=== PATIENT | female | born 1995 | race Caucasian/White ===

== ENCOUNTER 2018-07-23 19:06 | Emergency (ER) | payer BC ==
[2018-07-23 20:10] LABS: ABS Basophils 0.1 10^3/ul (0-0.2); ABS Eosinophils 0.3 10^3/ul (0-0.6); ABS Lymphocytes 2.8 10^3/ul (1.0-4.8); ABS Monocytes 0.5 10^3/ul (0-0.8); ABS Neutrophils 4.8 10^3/ul (1.5-7.7); ABS Nucleated RBC 0 10^3/ul; Eosinophil % 3.7 % (0-6); Hematocrit 38 % (35-47); Hemoglobin 12.8 g/dl (12.0-16.0); Lymphocyte % 33.3 % (25-47); Mean Corpuscular HGB Conc 34 g/dl (31-36); Mean Corpuscular Hemoglobin 29 pg (27-31); Mean Corpuscular Volume 86 fL (80-97); Mean Platelet Volume 8.3 um3 (7.4-10.4); Nucleated Red Blood Cells % 0.1; Platelet Count 247 10^3/ul (150-450); Red Blood Count 4.43 10^6/ul (4.00-5.40); Red Cell Distribution Width 13 % (10.5-15); White Blood Count 8.6 10^3/ul (3.5-10.8)
[2018-07-23 20:30] LABS: EGFR Non-African American 90.5 (>60)
--- NOTE | 2018-07-24 00:49 | ED ---
Abdominal Pain/Female - HPI Summary HPI Summary: The pt is a 22 y/o female [facility]/o epigastric pain since 2 weeks ago worsened today. The pain rated 9/10 in intensity radiates to the lower back. The pt was seen at [facility] and informed that labs were negative. An ABd/Pel CT scan done at Urgent Care 2 days ago returned negative. She notes vomiting but denies nausea, diarrhea, fever and constipation. - History of Current Complaint Chief Complaint: EDAbdPain Stated Complaint: ABD PAIN Hx Obtained From: Patient Onset/Duration: Lasting Weeks - 2 weeks, Still Present, Worse Since - Today Timing: Constant Severity Currently: Severe Pain Intensity: 9 Pain Scale Used: 0-10 Numeric Location: Epigastric Radiates: Yes Radiates to: Back Associated Signs and Symptoms: Positive: Back Pain, Vomiting. Negative: Fever, Constipation, Nausea, Diarrhea Allergies/Adverse Reactions: Allergies Allergy/AdvReac Type Severity Reaction Status Date / Time Tree Nuts Allergy Severe Anaphylatic Verified 07/23/18 19:19 Shock metronidazole [From Flagyl] Allergy Mild Dizziness Verified 07/23/18 19:19 Penicillins Allergy Mild Hives Verified 07/23/18 19:19 fruit extracts Allergy Severe Difficulty Uncoded 07/23/18 19:19 Breathing/Wheezing dust and molds Allergy Mild Eyes Uncoded 07/23/18 19:19 Itchy/Swollen/Red/Watery PMH/Surg Hx/FS Hx/Imm Hx Previously Healthy: No Endocrine/Hematology History: Reports: Other Endocrine/Hematological Disorders - [place] Denies: Hx Diabetes Cardiovascular History: Denies: Hx Hypertension History: Denies: Hx Renal Disease Sensory History: Denies: Hx Deafness Opthamlomology History: Denies: Hx Legally Blind - Cancer History Cancer Type, Location and Year: None reported - Surgical History Surgery Procedure, Year, and Place: wisdom teeth removal - Immunization History Date of Tetanus Vaccine: UTD Date of Influenza Vaccine: none Infectious Disease History: No Infectious Disease History: Denies: Traveled Outside the [place] in Last 30 Days - Family History Known Family History: Negative: Cardiac Disease - Social History Occupation: Student Lives: Dormitory/Roommates Alcohol Use: Weekly Substance Use Type: Reports: Marijuana, Other Substance Use Comment - Amount & Last Used: codeine cough syrup over last 2 weeks Hx Tobacco Use: No Smoking Status (MU): Never Smoked Tobacco Review of Systems Negative: Fever Gastrointestinal: Negative - Constipation Positive: Abdominal Pain - Epigastric, Vomiting. Negative: Diarrhea, Nausea All Other Systems Reviewed And Are Negative: Yes Physical Exam - Summary Physical Exam Summary: VITAL SIGNS: Reviewed. GENERAL: Patient is a well-developed and nourished (MALE OR FEMALE) who is lying comfortable in the stretcher. Patient is not in any acute respiratory distress. HEAD AND FACE: No signs of trauma. No ecchymosis, hematomas or skull depressions. No sinus tenderness. EYES: PERRLA, EOMI x 2, No injected conjunctiva, no nystagmus. EARS: Hearing grossly intact. Ear canals and tympanic membranes are within normal limits. MOUTH: Oropharynx within normal limits. NECK: Supple, trachea is midline, no adenopathy, no JVD, no carotid bruit, no c- spine tenderness, neck with full ROM. CHEST: Symmetric, no tenderness at palpation LUNGS: Clear to auscultation bilaterally. No wheezing or crackles. CVS: Regular rate and rhythm, S1 and S2 present, no murmurs or gallops appreciated. ABDOMEN: Soft, diffusely tender. No signs of distention. No rebound no guarding , and no masses palpated. Bowel sounds are hyperactive. EXTREMITIES: FROM in all major joints, no edema, no cyanosis or clubbing. NEURO: Alert and oriented x 3. No acute neurological deficits. Speech is normal and follows commands. SKIN: Dry and warm Triage Information Reviewed: Yes Vital Signs On Initial Exam: Initial Vitals Temp Pulse Resp BP Pulse Ox 98.1 F 74 16 136/79 97 07/23/18 19:15 07/23/18 19:15 07/23/18 19:15 07/23/18 19:15 07/23/18 19:15 Vital Signs Reviewed: Yes Diagnostics - Vital Signs Vital Signs Temp Pulse Resp BP Pulse Ox 07/23/18 22:53 98.1 F 79 16 122/75 100 07/23/18 19:15 98.1 F 74 16 136/79 97 - Laboratory Lab Results: Lab Results 07/23/18 07/23/18 07/23/18 Range/Units 19:56 19:56 19:56 WBC 8.6 (3.5-10.8) 10^3/ul RBC 4.43 (4.00-5.40) 10^6/ul Hgb 12.8 (12.0-16.0) g/dl Hct 38 (35-47) % MCV 86 (80-97) fL MCH 29 (27-31) pg MCHC 34 (31-36) g/dl RDW 13 (10.5-15) % Plt Count 247 (150-450) 10^3/ul MPV 8.3 (7.4-10.4) um3 Neut % (Auto) 56.3 (38-83) % Lymph % (Auto) 33.3 (25-47) % [place] % (Auto) 6.1 (0-7) % Eos % (Auto) 3.7 (0-6) % Baso % (Auto) 0.6 (0-2) % Absolute Neuts (auto) 4.8 (1.5-7.7) 10^3/ul Absolute Lymphs (auto) 2.8 (1.0-4.8) 10^3/ul Absolute Monos (auto) 0.5 (0-0.8) 10^3/ul Absolute Eos (auto) 0.3 (0-0.6) 10^3/ul Absolute Basos (auto) 0.1 (0-0.2) 10^3/ul Absolute Nucleated RBC 0 10^3/ul Nucleated RBC % 0.1 Sodium 137 (135-145) mmol/L Potassium 4.1 (3.5-5.0) mmol/L Chloride 103 (101-111) mmol/L Carbon Dioxide 28 (22-32) mmol/L Anion Gap 6 (2-11) mmol/L BUN 16 (6-24) mg/dL Creatinine 0.80 (0.51-0.95) mg/dL Est GFR ( Amer) 109.6 (>60) Est GFR (Non-Af Amer) 90.5 (>60) BUN/Creatinine Ratio 20.0 (8-20) Glucose 96 (70-100) mg/dL Lactic Acid 0.7 (0.5-2.0) mmol/L Calcium 9.1 (8.6-10.3) mg/dL Total Bilirubin 0.40 (0.2-1.0) mg/dL AST 23 (13-39) U/L ALT 12 (7-52) U/L Alkaline Phosphatase 53 (34-104) U/L C-Reactive Protein 2.61 (<8.01) mg/L Total Protein 6.4 (6.4-8.9) g/dL Albumin 3.9 (3.2-5.2) g/dL Globulin 2.5 (2-4) g/dL Albumin/Globulin Ratio 1.6 (1-3) Lipase 12 (11.0-82.0) U/L Beta HCG, Quant < 0.60 mIU/mL Result Diagrams: 07/23/18 19:56 07/23/18 19:56 Lab Statement: Any lab studies that have been ordered have been reviewed, and results considered in the medical decision making process. - Ultrasound No standard instances Ultrasound Interpretation Completed By: ED Physician - Gallbladder US IMPRESSION : Normal study. The ED physician reviewed this radiology report. Abdominal Pain Fem Course/Dx - Course Course Of Treatment: A 22 year-old F presents to the ED with a CC of epigastric pain since 2 weeks ago worsened today. The pain rated 7/10 in intensity radiates to the lower back. The pt was seen at [facility] and informed that labs were negative. An Abd/Pel CT scan done at Urgent Care 2 days ago returned negative. She notes vomiting but denies nausea, diarrhea and constipation. A physical exam revealed diffuse abd tenderness and hyperactive bowel sounds. A gall bladder US, Abdominal X-ray and labs are all unremarkable. In the ED course, pt was given Alhydroxy/Mg 30 ml PO, and Lidocaine 2% 15ml PO which improved the symptoms. The pt possibly has IBS. She will be discharged with a final Dx of abdominal pain and instructions to follow up with a rental clerk. Pt is agreeable with this plan. Allergies noted. - Diagnoses Provider Diagnoses: Abdominal pain Discharge - Sign-Out/Discharge Documenting (check all that apply): Patient Departure - DC - Discharge Plan Condition: Stable Disposition: HOME Prescriptions: Dicyclomine CAP* [Bentyl CAP*] 10 mg PO TID PRN #30 cap PRN Reason: Pain Patient Education Materials: Abdominal Pain (ED) Referrals: Holden Delgadillo MD [Medical Doctor] - Saba Clayton [Primary Care Provider] - 2 Days Additional Instructions: RETURN TO THE EMERGENCY DEPARTMENT FOR CHANGING OR WORSENING SYMPTOMS. FOLLOW UP WITH PCP IN 1-2 DAYS. - Attestation Statements Document Initiated by Scribe: Yes Documenting Scribe: Sabine Azar Provider For Whom Scribe is Documenting (Include Credential): Dr. Zuleika Maharaj MD Scribe Attestation: Sabine John , scribed for Dr. Zuleika Maharaj MD on 07/24/18 at 0115.
[2018-07-24] MEDS ORDERED: Lidocaine 2% VISCOUS* 15 ML UDC PO ONE (00:50)
[2018-07-24] MEDS ORDERED: Al Hydrox/Mg Hydrox/Simet LIQ* 30 ML UDC PO ONE (00:50)
[2018-07-24 00:55] LABS: Urine Appearance Clear; Urine Blood Negative (Negative); Urine Color Straw; Urine Ketones Negative (Negative); Urine Protein Negative (Negative); Urine Specific Gravity 1.008 (1.010-1.030); Urine Urobilinogen Negative (Negative)
--- NOTE | 2018-07-24 00:59 | RAD ---
EXAM: US Abdomen Limited, Right Upper Quadrant CLINICAL HISTORY: 22 years old, female; Pain; Abdominal pain; Epigastric; Patient HX: Epigastric pain x2wks vomiting and bloating; Additional info: Ruq pain TECHNIQUE: Real-time ultrasound of the right upper quadrant with image documentation. COMPARISON: ABD W CT ABDOMEN W 07/13/2018 1:31 PM FINDINGS: Liver: The liver parenchyma shows homogeneous echogenicity. The liver measures 16.9 cm. There are no hepatic mass lesions or cysts. No intrahepatic bile duct dilation. Gallbladder: The gallbladder is normal in appearance. No gallstones.There was a negative sonographic Eli's sign, as per the mechatronics technologist. Common bile duct: The common bile duct has a diameter of approximately 2 mm. No stones. No dilation. Pancreas: The visualized pancreas is normal. Right kidney: The right kidney measures 10.4 cm. No stones. No hydronephrosis. Aorta: The visualized portions of the abdominal aorta are normal. Inferior vena cava: The inferior vena cava appears patent. IMPRESSION: Normal study. To contact [facility] with a general question: Operations Center - [phone] For direct physician to physician contact: Physician Hotline - [phone] [facility] ([facility] Facility ID #[id number])
[2018-07-24] MEDS ORDERED: Dicyclomine CAP* 10 MG PO ONE (01:11)
[2018-07-24] MEDS ORDERED: Dicyclomine CAP* 10 MG ONE (01:42)
[2018-07-24] MEDS ORDERED: Al Hydrox/Mg Hydrox/Simet LIQ* 30 ML UDC ONE (01:43)
[2018-07-24] MEDS ORDERED: Lidocaine 2% VISCOUS* 15 ML UDC ONE (01:43)
[2018-07-24 02:19] VITALS: BP 123/73
== END 2018-07-24 02:19 | disposition home or self-care (01) ==
LOC: ED 19:06
DX: R10.13 Epigastric pain (principal); Z88.0 Allergy status to penicillin; Z88.8 Allergy status to other drugs, medicaments and biological substances
CPT/HCPCS: 36415; 76705; 80053; 81003; 83605; 83690; 84702; 85025; 86140; 99282; A9270-GY